=== PATIENT | female | born 1995 | race Hispanic/Latino ===

== ENCOUNTER 2017-01-08 17:06 | Emergency (ER) | payer MEDICAID, OTHER ==
[~2017-01-08] VITALS: Ht 160 cm; Wt 95.3 kg
[~2017-01-08 17:06] MED LIST: LEVO75TA6 PO; OXYC-197 PO; PENI500T PO; PHEN-483 PO; PRCD5U PO; SULF1TAB38 PO
--- OUTSIDE RECORDS SUMMARY | 2017-01-08 17:12 | XMS REPORT | Continuity of Care Document ---
Author Author [facility] Organization [facility] Address Unknown Phone Unavailable Allergies Active Description Code Type Severity Reaction Onset Reported/Identified Relationship to Patient Clinical Status Yes No Known Drug Allergies [id number] Drug Allergy Unknown N/ A 03/15/2016 Medications Problems Date Dx Coded Attending Type Code Diagnosis Diagnosed By 01/09/2011 Ot 682.2 CELLULITIS OF TRUNK 05/17/2011 Ot 474.00 CHRONIC TONSILLITIS 03/04/2016 Ot 474.00 03/04/2016 Ot V72.63 03/04/2016 Ot V74.8 03/15/2016 MIGUE FINNEY, ARTEMIO Moore Ot L72.3 SEBACEOUS CYST 03/15/2016 MIGUE FINNEY, ARTEMIO Moore Ot Z01.818 ENCOUNTER FOR OTHER PREPROCEDURAL EXAMIN 03/16/2016 MIGUE FINNEY, ARTEMIO Moore Ot L72.3 SEBACEOUS CYST 03/16/2016 MIGUE FINNEY, ARTEMIO Moore Ot Z01.818 ENCOUNTER FOR OTHER PREPROCEDURAL EXAMIN 03/18/2016 Ot 474.00 CHRONIC TONSILLITIS 03/18/2016 Ot V72.63 PRE-PROCEDURAL LABORATORY EXAMINATION 03/18/2016 Ot V74.8 SCREEN-BACTERIAL DIS NEC 03/18/2016 MIGUE FINNEY, ARTEMIO Moore Ot L72.3 SEBACEOUS CYST 03/21/2016 MIGUE FINNEY, ARTEMIO Moore Ot L72.3 SEBACEOUS CYST 03/23/2016 Ot 474.00 CHRONIC TONSILLITIS 03/23/2016 Ot V72.63 PRE-PROCEDURAL LABORATORY EXAMINATION 03/23/2016 Ot V74.8 SCREEN-BACTERIAL DIS NEC 09/23/2016 Ot 474.00 CHRONIC TONSILLITIS 09/23/2016 Ot V72.63 PRE-PROCEDURAL LABORATORY EXAMINATION 09/23/2016 Ot V74.8 SCREEN-BACTERIAL DIS NEC Procedures Results Encounters ACCT No. Visit Date/Time Discharge Status Pt. Type Provider Facility Loc./Unit Complaint [id number] 03/18/2016 08:58:00 2015 14:10:00 DIS Outpatient MIGUE FINNEY, ARTEMIO Moore [facility] SDC SEBACEOUS CYST [id number] 03/15/2016 05:36:00 2015 13:23:00 DIS Outpatient MIGUE FINNEY, ARTEMIO Moore [facility] PREOP SEBACEOUS CYST [id number] 05/17/2011 05:38:00 Document Registration [id number] 05/10/2011 10:22:00 Document Registration [id number] 01/09/2011 10:40:00 Document Registration
[2017-01-08] MEDS ORDERED: PNV91TAB3 PO (17:23)
--- NOTE | 2017-01-08 17:39 | ED Neurological Problem ---
General Chief Complaint: Neuro-Stroke Like Symptoms Stated Complaint: L FACIAL DROOP/NUMBNESS, HAND TINGLES, 36 WKS PREG Nursing Triage Note: AMBULATED TO ROOM 07. STATES AROUND 1000 TODAY SHE NOTICED SHE COULD NOT SMILE RIGHT. DENIES ANY OTHER COMPLAINTS. PT DOES HAVE RIGHT SIDED FACIAL DROOP. PT IS 36 WEEKS . PT DENIES ANY PROBLEMS AT THIS TIME WITH THE . Nursing Sepsis Screen: No Definite Risk Source: patient Exam Limitations: no limitations History of Present Illness Time seen by provider: 17:33 Initial Comments The patient is a 21-year-old female. She is 36 weeks . She reports that after arising this morning she noted these right side of her face to feel odd. Ultimately it was noted that her right eye could not close completely and the right side of her mouth drooped. There was no other abnormality she had a baby shower and after completing the festivities the other ladies insisted she come out here for evaluation. She has had no recent pain in the area of the mastoid. There has been no viral symptoms and in fact she has felt quite well. Timing/Duration: other (10-12 hours) Allergies and Home Medications Allergies Coded Allergies: No Known Drug Allergies (Unverified , 03/15/16) Home Medications Levothyroxine Sodium 75 Mcg Tablet 75 MCG PO DAILY (Reported) Pnv95/Ferrous Fumarate/FA 1 Each Tablet 1 EACH PO (Reported) Constitutional: see HPI Eyes: No Symptoms Reported Ears, Nose, Mouth, Throat: see HPI Respiratory: no symptoms reported Cardiovascular: no symptoms reported Gastrointestinal: no symptoms reported Genitourinary: no symptoms reported Musculoskeletal: no symptoms reported Skin: no symptoms reported Psychiatric/Neurological: No Symptoms Reported Endocrine: No Symptoms Reported Past Fpdpcuw-Jajifg-Hhxffq Hx Patient Social History Recent Foreign Travel: No Contact w/Someone Who Travel: No Recent Infectious Disease Expo: No Recent Hopitalizations: No Surgeries HX Surgeries: Yes Respiratory Hx Respiratory Disorders: No Cardiovascular Hx Cardiac Disorders: No Neurological Hx Neurological Disorders: No Reproductive System Hx Reproductive Disorders: No Sexually Transmitted Disease: No HIV/AIDS: No Female Reproductive Disorders: Denies Genitourinary Hx Genitourinary Disorders: No Gastrointestinal Hx Gastrointestinal Disorders: No Musculoskeletal Hx Musculoskeletal Disorders: No Endocrine Hx Endocrine Disorders: Yes HEENT HX ENT Disorders: No (CONTACTS/GLASSES) Loss of Vision: Bilateral Hearing Impairment: Denies Cancer Hx Cancer: No Psychosocial Hx Psychiatric Problems: No Integumentary HX Skin/Integumentary Disorder: No Blood Transfusions Hx Blood Disorders: No Physical Exam Vital Signs Vital Sign - Last 12Hours 01/08/17 17:06 Temp 98.0 Pulse 94 Resp 16 B/P 141/91 Pulse Ox 97 Capillary Refill : Less Than 3 Seconds General Appearance: WD/WN no apparent distress other (she was observed to walk in in a normal fashion) Neck: full range of motion Respiratory: chest non-tender lungs clear normal breath sounds no respiratory distress no accessory muscle use respiratory distress Cardiovascular: normal peripheral pulses regular rate, rhythm no edema no gallop no JVD no murmur Gastrointestinal: normal bowel sounds non tender soft no organomegaly no pulsatile mass Back: normal inspection no CVA tenderness no vertebral tenderness CVA tenderness (R) CVA tenderness (L) 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 The lid could not be totally occluded. She was able to raise the eyebrows equally. The smile showed the left corner of the mouth to rise but not the right. There is effacement of the right naso labial fold. Speech was normal. Tissue Rewinder was 2+ and equal. Biceps and triceps were 2-3+ and equal bilaterally. Gait was normal and straight leg lift was normal bilaterally as well. Stroke NIH Stroke Scale Assessment Level of Consciousness: 0=Alert Level of Consciousness-Questio: 0=Answers both month/age LOC Commands: 0=Performs both tasks Gaze: 0=Normal Visual Azmarripa: 0=No visual loss Facial Movement (Facial Paresi: 1=Minor paralysis Motor Function-Arms Right: 0=No drift Motor Function-Arms Left: 0=No drift Motor Function-Legs Right: 0=No drift Motor Function-Legs Left: 0=No drift Limb Ataxia: 0=Absent Sensory: 0=Normal:no loss Best Language: 0=No aphasia Dysarthria: 0=Normal Extinction & Inattention: 0=No abnormality Progress/Results/Core Measures Results/Orders Vital Signs/I&O Vital Sign - Last 12Hours 01/08/17 17:06 Temp 98.0 Pulse 94 Resp 16 B/P 141/91 Pulse Ox 97 Blood Pressure Mean: 108 Departure Communication Progress Notes [address] Miguelina Montalvo. 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 Decision time for Depature: 17:40 Referrals: EH MORIN MD (PCP) Primary Care Physician LARA MELENDEZ MD (Family) Primary Care Physician Add. Discharge Instructions: All discharge instructions reviewed with patient and/or family. Voiced understanding. Take prednisone as directed now and then each a.m. Use soothe eyedrops at bedtime Scripts Prednisone 20 Mg Tab60 Mg PO daily in a.m. #24 TAB Prov:ADIEL ANN MD 01/08/17 ADIEL ANN MD Jan 08, 2017 17:39
[2017-01-08] MEDS ORDERED: PRD20T PO (17:44)
[2017-01-08] MEDS ORDERED: predniSONE 20 MG TAB PO ONE (18:00)
[2017-01-08 18:05] VITALS: BP 129/70
[2017-02-04] MEDS ORDERED: ACET1TAB43 PO (11:29)
[2017-02-04] MEDS ORDERED: DOCU100C37 PO (11:29)
[2017-02-04] MEDS ORDERED: IBUP-1773 PO (11:29)
[2017-02-04] MEDS ORDERED: FERR-74 PO (11:29)
== END 2017-01-08 18:05 | disposition home or self-care (01) ==
LOC: EDUNIT# 17:06 → ER 17:08
DX: O99.352 Diseases of the nervous system complicating pregnancy, second trimester (principal); G51.0 Bell's palsy; Z3A.36 36 weeks gestation of pregnancy
CPT/HCPCS: 99283

== ENCOUNTER 2017-02-02 17:28 | Outpatient (CLI) | payer MEDICAID ==
[~2017-02-02 17:28] MED LIST changes: +PNV91TAB3 PO; +PRD20T PO
--- OUTSIDE RECORDS SUMMARY | 2017-02-02 18:05 | XMS REPORT | Continuity of Care Document ---
Author Author [facility] Organization [facility] Address Unknown Phone Unavailable Allergies Active Description Code Type Severity Reaction Onset Reported/Identified Relationship to Patient Clinical Status Yes No Known Drug Allergies [id number] Drug Allergy Unknown N/ A 03/15/2016 Medications [...] EXAMINATION 09/23/2016 Ot V74.8 SCREEN-BACTERIAL DIS NEC 01/08/2017 ADIEL ANN MD Ot G51.0 KOEHLER'S PALSY 01/08/2017 ADIEL ANN MD Ot O99.352 DISEASES OF THE NERVOUS SYS COMP PREGNAN 01/08/2017 ADIEL ANN MD Ot R29.810 FACIAL WEAKNESS 01/08/2017 ADIEL ANN MD Ot Z3A.36 36 WEEKS GESTATION OF 01/09/2017 ADIEL ANN MD Ot G51.0 KOEHLER'S PALSY 01/09/2017 ADIEL ANN MD Ot O99.352 DISEASES OF THE NERVOUS SYS COMP PREGNAN 01/09/2017 ADIEL ANN MD Ot R29.810 FACIAL WEAKNESS 01/09/2017 ADIEL ANN MD Ot Z3A.36 36 WEEKS GESTATION OF 01/14/2017 ADIEL ANN MD Ot G51.0 KOEHLER'S PALSY 01/14/2017 ADIEL ANN MD Ot O99.352 DISEASES OF THE NERVOUS SYS COMP PREGNAN 01/14/2017 ADIEL ANN MD Ot R29.810 FACIAL WEAKNESS 01/14/2017 ADIEL ANN MD Ot Z3A.36 36 WEEKS GESTATION OF Procedures Results Encounters ACCT No. Visit Date/Time Discharge Status Pt. Type Provider Facility Loc./Unit Complaint [id number] 01/08/2017 17:08:00 2016 18:05:00 DIS Emergency ADIEL ANN MD [facility] ER L FACIAL DROOP/NUMBNESS, HAND TINGLES, 36 WKS PREG [id number] 03/18/2016 08:58:00 2015 14:10:00 DIS Outpatient ARTEMIO CAMARENA MD [facility] SDC SEBACEOUS CYST [id number] 03/15/2016 05:36:00 2015 13:23:00 DIS Outpatient ARTEMIO CAMARENA MD [facility] PREOP SEBACEOUS CYST [id number] 02/02/2017 17:28:00 ACT Outpatient ASUNCION HAMILTON DO [id number] 05/17/2011 05:38:00 Document Registration [id number] 05/10/2011 10:22:00 Document Registration [id number] 01/09/2011 10:40:00 Document Registration
[2017-02-02 18:17] VITALS: BP 132/78
--- NOTE | 2017-02-03 10:59 | Physician Query-Final Dx ---
LENARD WHITNEY 02/03/17 1058: Clinic Account Progress/Dx Physician Query: Please give diagnosis Date of Service Feb 02, 2017 at 17:28 ASUNCION HAMILTON DO 02/03/17 1159: Clinic Account Progress/Dx DIAGNOSIS: Diagnosis Contractions LENARD WHITNEY Feb 03, 2017 10:58 ASUNCION HAMILTON DO Feb 03, 2017 11:59
== END 2017-02-02 18:20 ==
LOC: WSo 17:28 → LDRP 18:03 → WSo 18:20
PROVIDERS: ATTEND Obstetrics & Gynecology
DX: O47.1 False labor at or after 37 completed weeks of gestation (principal); Z3A.39 39 weeks gestation of pregnancy
CPT/HCPCS: 59025

== ENCOUNTER 2017-02-02 20:00 | Inpatient (IN) | payer MEDICAID ==
[2017-02-02] VITALS (23 sets, daily range): BP systolic 119–161; BP diastolic 57–104
[~2017-02-02] VITALS: Ht 154.9 cm; Wt 114.8 kg
--- OUTSIDE RECORDS SUMMARY | 2017-02-02 20:13 | XMS REPORT | Continuity of Care Document ---
Author Author [facility] Organization [facility] Address Unknown Phone Unavailable Allergies Active Description Code Type Severity Reaction Onset Reported/Identified Relationship to Patient Clinical Status Yes No Known Drug Allergies [id number] Drug Allergy Unknown N/ A 03/15/2016 Medications [...] Status Pt. Type Provider Facility Loc./Unit Complaint [id number] 02/02/2017 17:28:00 2016 18:20:00 DIS Outpatient ASUNCION HAMILTON DO [facility] WSo NST [id number] 01/08/2017 17:08:00 2016 18:05:00 DIS Emergency ADIEL ANN MD [facility] ER L FACIAL DROOP/NUMBNESS, HAND TINGLES, 36 WKS PREG [id number] 03/18/2016 08:58:00 2015 14:10:00 DIS Outpatient ARTEMIO CAMARENA MD [facility] SDC SEBACEOUS CYST [id number] 03/15/2016 05:36:00 2015 13:23:00 DIS Outpatient ARTEMIO CAMARENA MD [facility] PREOP SEBACEOUS CYST [id number] 02/02/2017 20:00:00 ACT Inpatient ASUNCION HAMILTON DO [facility] LDRP INDUCTION [id number] 05/17/2011 05:38:00 Document Registration [id number] 05/10/2011 10:22:00 Document Registration [id number] 01/09/2011 10:40:00 Document Registration
[2017-02-02] MEDS ORDERED: NS IV 1000 ML 1,000 ML ONE (20:22)
[2017-02-02 20:25] LABS: BILIRUBIN,URINE NEGATIVE (NEGATIVE); KETONES,URINE 2+ (NEGATIVE); LEUKOCYTE ESTERASE ,URINE 3+ (NEGATIVE); NITRITE,URINE NEGATIVE (NEGATIVE); PH,URINE 7 (5-9); PROTEIN,URINE 2+ (NEGATIVE); UROBILINOGEN,URINE NORMAL (NORMAL)
[2017-02-02] MEDS ORDERED: CATHETER FLUSH 10 ML SYR IV PRN (20:30)
[2017-02-02] MEDS ORDERED: NS IV 1000 ML 1,000 ML IV SCH (20:30)
[2017-02-02 20:36] LABS: RENAL EPITHELIAL CELLS,URINE 0-2 /HPF; YEAST,URINE FEW /HPF
[2017-02-02 20:44] LABS: BASOPHILS % (AUTO) 0 % (0-10); EOSINOPHILS % (AUTO) 0 % (0-10); LYMPHOCYTES # (AUTO) 2.3 X 10^3 (1.0-4.0); LYMPHOCYTES % (AUTO) 16 % (12-44); MEAN CORPUSCULAR HEMOGLOBIN 32 PG (25-34); MEAN CORPUSCULAR HGB CONC 35 G/DL (32-36); MEAN CORPUSCULAR VOLUME 90 FL (80-99); MEAN PLATELET VOLUME 11.2 FL (7.4-10.4); MONOCYTES # (AUTO) 0.6 X 10^3 (0.0-1.0); MONOCYTES % (AUTO) 4 % (0-12); NEUTROPHILS # (AUTO) 11.6 X 10^3 (1.8-7.8); NEUTROPHILS % (AUTO) 80 % (42-75); PLATELET COUNT 309 10^3/uL (130-400); RED BLOOD COUNT 4.06 10^6/uL (4.35-5.85); RED CELL DISTRIBUTION WIDTH 14.3 % (10.0-14.5); WHITE BLOOD COUNT 14.6 10^3/uL (4.3-11.0)
[2017-02-02 21:07] LABS: ALANINE AMINOTRANSFERASE 10 U/L (0-55); ALBUMIN 3.2 G/DL (3.2-4.5); ANION GAP 11 MMOL/L (5-14); ASPARTATE AMINO TRANSFERASE 16 U/L (5-34); BILIRUBIN,TOTAL 0.3 MG/DL (0.1-1.0); BLOOD UREA NITROGEN 10 MG/DL (7-18); BUN/CREATININE RATIO 15; CALCIUM 8.7 MG/DL (8.5-10.1); CARBON DIOXIDE 17 MMOL/L (21-32); CHLORIDE 110 MMOL/L (98-107); CREATININE SERUM 0.67 MG/DL (0.60-1.30); GFR ESTIMATED > 60; GLUCOSE 109 MG/DL (70-105); LACTATE DEHYDROGENASE 171 U/L (125-220); POTASSIUM 3.8 MMOL/L (3.6-5.0); SODIUM 138 MMOL/L (135-145); TOTAL PROTEIN 6.2 G/DL (6.4-8.2); URIC ACID 4.4 MG/DL (2.6-7.2)
[2017-02-02] MEDS ORDERED: SUFENTA 0.6MCG/ML BUPIVA 0.125 100 ML ONE (21:29)
[2017-02-02] MEDS ORDERED: MINERAL OIL CONCENTRATE 99.9% 15 ML UDC TOP PRN (21:30)
[2017-02-02] MEDS: D5 LR IV SOLUTION 1,000 ML IV SCH (21:33)
[2017-02-02] MEDS ORDERED: fentaNYL INJECTION 100 MCG/2 ML AMP ONE (22:01)
[2017-02-02] MEDS ORDERED: LACTATED RINGERS 1,000 ML IV ONE (23:02)
[2017-02-02] MEDS ORDERED: NALOXONE 0.4 MG/ML 1 ML (NARCAN) VIAL IV PRN ×2 (23:15)
[2017-02-02] MEDS ORDERED: METOCLOPRAMIDE INJ 10 MG/2 ML (REGLAN) IV PRN (23:15)
[2017-02-02] MEDS ORDERED: EPIDURAL (SUFENTA 0.6MCG/ML BUPIVA 0.125%) 100 ML BAG EPI PRN (23:15)
[2017-02-02] MEDS ORDERED: ONDANSETRON 4 MG/2 ML (SDV) Z0FRAN IV PRN (23:15)
[2017-02-02] MEDS ORDERED: fentaNYL INJECTION 100 MCG/2 ML AMP INJ ONE (23:15)
[2017-02-02] MEDS ORDERED: diphenhydrAMINE 50 MG/ML INJ (BENADRYL) IV PRN (23:15)
[2017-02-03] VITALS (43 sets, daily range): BP systolic 109–191; BP diastolic 56–98
[2017-02-03] MEDS ORDERED: OXYTOCIN/NORMAL SALINE 500 ML IV ONE (02:49)
[2017-02-03] MEDS: D5 LR IV SOLUTION 1,000 ML IV SCH (04:55)
[2017-02-03] MEDS ORDERED: FLU TRIvalent (5 YOA+) 2016-17 (AFLURIA) 0.5 ML IM ONE (07:00)
[2017-02-03] MEDS ORDERED: LIDOCAINE/EPI 1%-1:200,000 (XYLOCAINE) 30 ML VIAL ONE (07:36)
[2017-02-03] MEDS ORDERED: OXYTOCIN/NORMAL SALINE 500 ML IV SCH (08:07)
--- NOTE | 2017-02-03 08:10 | OB Labor & Delivery Record ---
Vag Delivery Note Vag Delivery Note Date of Delivery: 02/03/17 Preoperative Diagnosis: Tatiana Robledo is a 21 /Para 1 /0 ,Gestational Age 39 weeks with preeclampsia Postoperative Diagnosis: Same Surgeon: ASUNCION HAMILTON System Archive Analyst: Madisyn Lane, MS III Anesthesia: epidural Delivery Type: vaginal Findings: Viable female infant, apgars pending, weight 6$5oz Lacerations: Intact placenta with 3 vessel cord. No nuchal cord, body cord or shoulder dystocia Estimated Blood Loss: 350 ml Complications: None Condition: Stable Description of Procedure: The patient is a 21-year-old 1 para 0 female at 38-6/7 weeks who was admitted 3 917 for induction of labor due to preeclampsia. In the office she was 2-3 cm dilated and blood pressure was 140/97. She was planned to be admitted for induction however upon arrival she was kaye regularly and cervix was 4-5 cm dilated. So she was actually admitted in active labor. Preeclamptic labs were normal but she did have 2+ proteinuria. Did not require blood pressure medication treatment during labor. She was admitted and an epidural was placed and she had normal labor progression. She was admitted and informed consent was obtained. At 6 a.m. I was notified that she was nearly complete. I examined her just after 7 a.m. and she was noted to be complete and +1 with a bulging bag, and had artificial rupture of membranes at that time. There was noted to be meconium. She progressed to complete dilatation and began to push. She was then set up for delivery. The 's head was delivered atraumatically in the OA position. The nose and oropharynx were DeLee suctioned on the perineum. There was no meconium noted in the mouth or nares. There was clear fluid. But there was meconium delivered with the baby. As well as meconium-stained fluid. The shoulders and remainder of the 's body were then delivered without difficulty. Upon delivery, the head was held below the level of the perineum and the mouth and nares were bulb suctioned again. The cord was doubly clamped and cut and the was handed off to the pediatric staff. An intact placenta with 3-vessel cord delivered via Cassidy and there was found to be minimal bleeding.~ Vigorous fundal massage was performed and the fundus was found to be firm. IV oxytocin was given. Examination of the vagina and perineum revealed a first degree laceration repaired in the usual fashion with 3-0 vicryl suture. She also had anterior labial abrasions and these were not repaired, bilaterally. Following the repair , sponge, instrument and needle counts were correct. Mom and baby were both in stable condition in the labor suite. Vitals - Labs Vital Signs - I&O Vital Signs Date Time Temp Pulse Resp B/P Pulse Ox O2 Delivery O2 Flow Rate FiO2 02/03/17 07:02 85 18 160/72 98 Room Air 02/03/17 06:45 81 18 165/75 98 Room Air 02/03/17 06:30 82 18 153/72 97 Room Air 02/03/17 06:15 86 18 167/87 100 Room Air 02/03/17 06:00 97.1 89 18 171/86 100 Room Air 02/03/17 05:45 94 18 157/91 100 Room Air 02/03/17 05:30 91 18 141/83 100 Room Air 02/03/17 05:15 90 18 141/79 100 Room Air 02/03/17 05:00 86 18 142/85 100 Room Air 02/03/17 04:45 108 18 145/75 99 Non Rebreather 10.00 02/03/17 04:30 85 18 143/89 99 Non Rebreather 10.00 02/03/17 04:15 77 18 139/85 99 Non Rebreather 10.00 02/03/17 04:00 97 18 134/85 99 Non Rebreather 10.00 02/03/17 03:45 83 18 138/90 100 Non Rebreather 10.00 02/03/17 03:30 92 18 133/92 100 Non Rebreather 10.00 02/03/17 03:15 97 18 127/89 99 Non Rebreather 10.00 02/03/17 03:00 98 18 117/67 100 Non Rebreather 10.00 02/03/17 02:45 85 18 125/72 100 Non Rebreather 10.00 02/03/17 02:30 90 18 121/76 100 Non Rebreather 10.00 02/03/17 02:15 102 18 116/63 99 Room Air 02/03/17 01:50 103 18 120/56 96 Room Air 02/03/17 01:35 94 18 117/56 95 Room Air 02/03/17 01:20 81 18 124/65 96 Room Air 02/03/17 01:05 94 18 124/67 98 Room Air 02/03/17 00:50 94 18 121/63 98 Room Air 02/03/17 00:40 86 18 109/57 99 Room Air 02/03/17 00:20 101 18 132/61 99 Room Air 02/03/17 00:05 85 18 143/63 98 Room Air 02/02/17 23:50 87 18 145/66 99 Room Air 02/02/17 23:35 98 18 133/62 100 Room Air 02/02/17 23:15 103 18 135/66 100 Room Air 02/02/17 23:12 97 18 128/59 100 Room Air 02/02/17 23:09 100 18 130/64 100 Room Air 02/02/17 23:06 103 18 119/58 100 Room Air 02/02/17 23:03 97 18 120/57 100 Room Air 02/02/17 23:00 106 18 122/57 100 Room Air 02/02/17 22:55 97.2 108 18 122/61 100 Room Air 02/02/17 22:52 105 18 133/73 98 Room Air 02/02/17 22:49 94 18 148/85 98 Room Air 02/02/17 22:48 89 18 142/80 98 Room Air 02/02/17 22:45 87 18 147/83 98 Room Air 02/02/17 22:41 95 18 161/79 98 Room Air 02/02/17 22:38 85 18 148/86 96 Room Air 02/02/17 22:34 85 18 134/70 98 Room Air 02/02/17 22:25 97 18 143/74 99 Room Air 02/02/17 22:15 81 18 146/69 99 Room Air 02/02/17 22:09 93 18 157/90 99 Room Air 02/02/17 22:03 93 18 153/91 100 Room Air 02/02/17 21:40 76 18 140/83 Room Air 02/02/17 20:25 81 18 128/71 Room Air 02/02/17 20:15 98.1 78 18 147/104 Room Air I & O 02/03/17 07:00 Intake Total 2000 ml Balance 2000 ml Labs Laboratory Tests 02/02/17 20:10: Urine Bacteria FEWH, Urine Bilirubin NEGATIVE, Urine Casts NONE, Urine Clarity CLEAR, Urine Color YELLOW, Urine Crystals NONE, Urine Culture Indicated YES, Urine Glucose (UA) NEGATIVE, Urine Ketones 2+H, Urine Leukocyte Esterase 3+H, Urine Mucus NEGATIVE, Urine Nitrite NEGATIVE, Urine Protein 2+H, Urine RBC NONE , Urine RBC (Auto) NEGATIVE, Urine Renal Epithelial Cells 0-2, Urine Specific [place] 1.015L, Urine Squamous Epithelial Cells 5-10, Urine Urobilinogen NORMAL , Urine WBC 5-10H, Urine Yeast FEWH, Urine pH 7 02/02/17 20:36: Alanine Aminotransferase (ALT/SGPT) 10, Albumin 3.2, Alkaline Phosphatase 211H, Anion Gap 11, Aspartate Amino Transf (AST/SGOT) 16, BUN/Creatinine Ratio 15, Basophils # (Auto) 0.0, Basophils (%) (Auto) 0, Blood Urea Nitrogen 10, Calcium Level 8.7, Carbon Dioxide Level 17L, Chloride Level 110H, Creatinine 0.67, Eosinophils # (Auto) 0.0, Eosinophils (%) (Auto) 0, Estimat Glomerular Filtration Rate > 60, Glucose Level 109H, Hematocrit 37, Hemoglobin 12.9, Lactate Dehydrogenase 171, Lymphocytes # (Auto) 2.3, Lymphocytes (%) (Auto) 16, Mean Corpuscular Hemoglobin 32, Mean Corpuscular Hemoglobin Concent 35, Mean Corpuscular Volume 90, Mean Platelet Volume 11.2H, Monocytes # (Auto) 0.6, Monocytes (%) (Auto) 4, Neutrophils # (Auto) 11.6H, Neutrophils (%) (Auto) 80H, Platelet Count 309, Potassium Level 3.8, Red Blood Count 4.06L, Red Cell Distribution Width 14.3, Sodium Level 138, Total Bilirubin 0.3, Total Protein 6.2L, Uric Acid 4.4, White Blood Count 14.6H ASUNCION HAMILTON DO Feb 03, 2017 08:10
[2017-02-03] MEDS ORDERED: TETANUS,DIPTH,PERTUSS P/F (BOOSTRIX) 0.5 ML VIAL IM ONE (08:15)
[2017-02-03] MEDS ORDERED: MEASLES,MUMPS,RUBELLA 1 EA INJ SQ ONE (08:15)
[2017-02-03] MEDS ORDERED: DIBUCAINE (NUPERCAINAL) 1% OINT 30 GM TOP PRN (08:15)
[2017-02-03] MEDS ORDERED: APAP 300 MG/CODEINE 30 MG (TYLENOL #3) TAB PO PRN (08:15)
[2017-02-03] MEDS: IBUPROFEN 600 MG (MOTRIN) TAB PO SCH ×3 (09:19→21:38)
--- NOTE | 2017-02-03 12:25 | Anesthesia-Regional Post-Op ---
Regional Patient Condition Mental Status: Alert, Oriented x3 Circulation: Same as Pre-Op Headache: Absent Sensation: Full Recovery Motor Block: Absent Post Op Complications Complications None Follow Up Care/Instructions Patient Instructions None needed. Anesthesia/Patient Condition Patient is doing well, no complaints, stable vital signs, no apparent adverse anesthesia problems. No complications reported per nursing. LUNA MANE CRNA Feb 03, 2017 12:25
[2017-02-03] MEDS ORDERED: CATHETER FLUSH 10 ML SYR IV SCH (14:00)
[2017-02-03] MEDS: DOCUSATE SODIUM 100 MG (COLACE) CAP PO SCH (21:37)
[2017-02-04 05:25] VITALS: BP 127/83
[2017-02-04] MEDS: IBUPROFEN 600 MG (MOTRIN) TAB PO SCH ×3 (05:28→18:55)
[2017-02-04 05:34] LABS: BASOPHILS % (AUTO) 0 % (0-10); EOSINOPHILS # (AUTO) 0.1 10^3/uL (0.0-0.3); EOSINOPHILS % (AUTO) 1 % (0-10); LYMPHOCYTES # (AUTO) 3.9 X 10^3 (1.0-4.0); LYMPHOCYTES % (AUTO) 29 % (12-44); MEAN CORPUSCULAR HEMOGLOBIN 32 PG (25-34); MEAN CORPUSCULAR HGB CONC 34 G/DL (32-36); MEAN CORPUSCULAR VOLUME 93 FL (80-99); MEAN PLATELET VOLUME 10.9 FL (7.4-10.4); MONOCYTES # (AUTO) 0.6 X 10^3 (0.0-1.0); MONOCYTES % (AUTO) 5 % (0-12); NEUTROPHILS # (AUTO) 8.7 X 10^3 (1.8-7.8); NEUTROPHILS % (AUTO) 65 % (42-75); PLATELET COUNT 236 10^3/uL (130-400); RED BLOOD COUNT 2.98 10^6/uL (4.35-5.85); RED CELL DISTRIBUTION WIDTH 14.6 % (10.0-14.5); WHITE BLOOD COUNT 13.3 10^3/uL (4.3-11.0)
[2017-02-04] MEDS: BENZOCAINE/MENTHOL (DERMOPLAST) 56 ML CAN TP PRN (05:34)
[2017-02-04] MEDS: WITCH HAZEL(TUCKS) 40 EA JAR TOP PRN (05:34)
[2017-02-04] MEDS ORDERED: TETANUS,DIPTH,PERTUSS P/F (BOOSTRIX) 0.5 ML VIAL IM ONE (09:00)
[2017-02-04] MEDS ORDERED: FLU TRIvalent (5 YOA+) 2016-17 (AFLURIA) 0.5 ML IM ONE (09:03)
[2017-02-04] MEDS: FERROUS SULF 325 MG (IRON) TAB PO SCH (09:09)
[2017-02-04] MEDS: DOCUSATE SODIUM 100 MG (COLACE) CAP PO SCH ×2 (09:09→21:45)
[2017-02-04] MEDS: PRENATAL VITAMIN 1 EA TAB PO SCH (09:10)
[2017-02-04 09:16] VITALS: BP 128/86
--- NOTE | 2017-02-04 11:27 | Postpartum Progress Note ---
Note Note Day #1 Baby stable but feeding issues so will plan discharge tomorrow. Subjective: Patient is without complaints. Ambulating, voiding. Tolerating a regular diet without nausea or vomiting. Normal lochia. Pain is well controlled with oral pain medications. [breast feeding Objective: BP 127/83 P 78 Laboratory Tests Test 02/02/17 20:10 02/02/17 20:36 02/04/17 05:22 Range/Units Urine Bacteria FEW H /HPF Urine Bilirubin NEGATIVE NEGATIVE Urine Casts NONE /LPF Urine Clarity CLEAR Urine Color YELLOW Urine Crystals NONE /LPF Urine Culture Indicated YES Urine Glucose (UA) NEGATIVE NEGATIVE Urine Ketones 2+ H NEGATIVE Urine Leukocyte Esterase 3+ H NEGATIVE Urine Mucus NEGATIVE /LPF Urine Nitrite NEGATIVE NEGATIVE Urine Protein 2+ H NEGATIVE Urine RBC NONE /HPF Urine RBC (Auto) NEGATIVE NEGATIVE Urine Renal Epithelial Cells 0-2 /HPF Urine Specific [place] 1.015 L 1.016-1.022 Urine Squamous Epithelial Cells 5-10 /HPF Urine Urobilinogen NORMAL NORMAL MG/DL Urine WBC 5-10 H /HPF Urine Yeast FEW H /HPF Urine pH 7 5-9 Alanine Aminotransferase (ALT/SGPT) 10 0-55 U/L Albumin 3.2 3.2-4.5 G/DL Alkaline Phosphatase 211 H 40-136 U/L Anion Gap 11 5-14 MMOL/L Aspartate Amino Transf (AST/SGOT) 16 5-34 U/L BUN/Creatinine Ratio 15 Basophils # (Auto) 0.0 0.0 0.0-0.1 10^3/uL Basophils (%) (Auto) 0 0 0-10 % Blood Urea Nitrogen 10 7-18 MG/DL Calcium Level 8.7 8.5-10.1 MG/DL Carbon Dioxide Level 17 L 21-32 MMOL/L Chloride Level 110 H 98-107 MMOL/L Creatinine 0.67 0.60-1.30 MG/DL Eosinophils # (Auto) 0.0 0.1 0.0-0.3 10^3/uL Eosinophils (%) (Auto) 0 1 0-10 % Estimat Glomerular Filtration Rate > 60 Glucose Level 109 H 70-105 MG/DL Hematocrit 37 28 L 35-52 % Hemoglobin 12.9 9.4 #L 11.5-16.0 G/DL Lactate Dehydrogenase 171 125-220 U/L Lymphocytes # (Auto) 2.3 3.9 1.0-4.0 X 10^3 Lymphocytes (%) (Auto) 16 29 12-44 % Mean Corpuscular Hemoglobin 32 32 25-34 PG Mean Corpuscular Hemoglobin Concent 35 34 32-36 G/DL Mean Corpuscular Volume 90 93 80-99 FL Mean Platelet Volume 11.2 H 10.9 H 7.4-10.4 FL Monocytes # (Auto) 0.6 0.6 0.0-1.0 X 10^3 Monocytes (%) (Auto) 4 5 0-12 % Neutrophils # (Auto) 11.6 H 8.7 H 1.8-7.8 X 10^3 Neutrophils (%) (Auto) 80 H 65 42-75 % Platelet Count 309 236 130-400 10^3/uL Potassium Level 3.8 3.6-5.0 MMOL/L Red Blood Count 4.06 L 2.98 L 4.35-5.85 10^6/uL Red Cell Distribution Width 14.3 14.6 H 10.0-14.5 % Sodium Level 138 135-145 MMOL/L Total Bilirubin 0.3 0.1-1.0 MG/DL Total Protein 6.2 L 6.4-8.2 G/DL Uric Acid 4.4 2.6-7.2 MG/DL White Blood Count 14.6 H 13.3 H 4.3-11.0 10^3/uL Physical Exam: General - Alert and oriented, no apparent distress Abdomen - Soft, appropriately tender to palpation, non-distended, fundus firm at umbilicus Extremities - 2+ edema, negative Cheng's bilaterally Assessment: 1. post- day #1, status post spontaneous vaginal delivery. Recovering well, hemodynamically stable 2. Preeclampsia - BP improved 3. Acute blood loss anemia - iron replaced Plan: Routine care. Encourage breast feeding. Encourage ambulation. Ferrous sulfate supplementation. Plan for discharge tomorrow Vitals - Labs Vital Signs - I&O Vital Signs Date Time Temp Pulse Resp B/P Pulse Ox O2 Delivery O2 Flow Rate FiO2 02/04/17 09:16 97.7 91 20 128/86 100 Room Air 02/04/17 05:25 97.4 76 127/83 100 Room Air 02/03/17 23:35 98.4 100 18 133/72 99 Room Air 02/03/17 19:55 98.4 99 18 120/81 99 Room Air 02/03/17 15:45 97.9 90 18 123/87 Room Air 02/03/17 13:34 97.7 90 18 136/87 98 Room Air I & O 02/04/17 07:00 Intake Total 500 ml Balance 500 ml Labs Laboratory Tests 02/04/17 05:22: Basophils # (Auto) 0.0, Basophils (%) (Auto) 0, Eosinophils # (Auto) 0.1, Eosinophils (%) (Auto) 1, Hematocrit 28L, Hemoglobin 9.4#L, Lymphocytes # (Auto ) 3.9, Lymphocytes (%) (Auto) 29, Mean Corpuscular Hemoglobin 32, Mean Corpuscular Hemoglobin Concent 34, Mean Corpuscular Volume 93, Mean Platelet Volume 10.9H, Monocytes # (Auto) 0.6, Monocytes (%) (Auto) 5, Neutrophils # ( Auto) 8.7H, Neutrophils (%) (Auto) 65, Platelet Count 236, Red Blood Count 2.98L , Red Cell Distribution Width 14.6H, White Blood Count 13.3H Microbiology 02/02/17 Urine Culture - Preliminary, Resulted ASUNCION HAMILTON DO Feb 04, 2017 11:27
[2017-02-04] MEDS ORDERED: ACET1TAB43 PO ×2 (11:29)
[2017-02-04] MEDS ORDERED: IBUP-1773 PO ×2 (11:29)
[2017-02-04] MEDS ORDERED: DOCU100C37 PO ×2 (11:29)
[2017-02-04] MEDS ORDERED: FERR-74 PO ×2 (11:29)
--- NOTE | 2017-02-04 11:30 | Discharge Inst-Women's Service ---
Discharge Inst-Women's Serv Depart Medication/Instructions New, Converted or Re-Newed RX: RX on Chart Instructions also transmitted Final Diagnosis preeclampsia vaginal delivery acute blood loss anemia Consults/Follow Up Additional Follow Up: Yes (1 week BP check and 6 weeks. ) Activity Activity: Activity as Tolerated Driving Instructions: You May Drive NO SMOKING: NO SMOKING Nothing Inside Vagina: No Douching, No [place], No Tampons Diet Discharge Diet: No Restrictions Symptoms to Report to : Swelling Increased, Bleeding Excessive, Pain Increased, Fever Over 101 Degrees F, Vaginal Bleeding Increase, Vaginal Discharge Foul For Any Problems or Questions: Contact Your Physician ASUNCION HAMILTON DO Feb 04, 2017 11:30
[2017-02-04 15:37] VITALS: BP 122/86
[2017-02-04 21:52] VITALS: BP 132/76
[2017-02-05] MEDS: IBUPROFEN 600 MG (MOTRIN) TAB PO SCH ×2 (01:08→09:19)
[2017-02-05 01:13] VITALS: BP 116/75
[2017-02-05] MEDS: BENZOCAINE/MENTHOL (DERMOPLAST) 56 ML CAN TP PRN (09:19)
[2017-02-05] MEDS: WITCH HAZEL(TUCKS) 40 EA JAR TOP PRN (09:19)
[2017-02-05] MEDS: DOCUSATE SODIUM 100 MG (COLACE) CAP PO SCH (09:19)
[2017-02-05] MEDS: PRENATAL VITAMIN 1 EA TAB PO SCH (09:20)
[2017-02-05] MEDS: FERROUS SULF 325 MG (IRON) TAB PO SCH (09:20)
[2017-02-05 09:22] VITALS: BP 127/88
== END 2017-02-05 13:18 | disposition home or self-care (01) | DRG 775 ==
LOC: LDRP 20:00
PROVIDERS: ADMIT Obstetrics & Gynecology; ATTEND Obstetrics & Gynecology
PROC: 0HQ9XZZ Repair Perineum Skin, External Approach (ICD-10-PCS; principal; 2017-02-03)
PROC: 10E0XZZ Delivery of Products of Conception, External Approach (ICD-10-PCS; 2017-02-03)
DX: O14.94 Unspecified pre-eclampsia, complicating childbirth (principal); O70.0 First degree perineal laceration during delivery; O90.81 Anemia of the puerperium; D62 Acute posthemorrhagic anemia; Z23 Encounter for immunization; Z37.0 Single live birth; Z3A.38 38 weeks gestation of pregnancy
CPT/HCPCS: 36415; 80053; 81000; 83615; 84550; 85025; 86850; 86900; 86901; 87088; 90715